=== PATIENT | male | born 1965 | race Caucasian/White ===

== ENCOUNTER 2016-10-15 19:38 | Emergency (ER) | payer BC ==
[2016-10-15 19:59] VITALS: BP 136/93
== END 2016-10-15 22:05 | disposition home or self-care (01) ==
LOC: ED 19:38
DX: L03.115 Cellulitis of right lower limb (principal); L02.415 Cutaneous abscess of right lower limb

== ENCOUNTER 2016-10-19 17:13 | Emergency (ER) | payer BC ==
[~2016-10-19] VITALS: Ht 177.8 cm; Wt 98.4 kg
[2016-10-19 18:57] VITALS: BP 123/72
== END 2016-10-19 18:57 | disposition home or self-care (01) ==
LOC: ED 17:13
DX: L53.9 Erythematous condition, unspecified (principal)